=== PATIENT | female | born 1965 | race Caucasian/White ===

== ENCOUNTER 2016-05-26 23:04 | Emergency (ER) | payer OTHER ==
--- NOTE | 2016-05-27 00:25 | ED GENERAL ADULT ---
History of Present Illness General Chief Complaint: General Adult Stated Complaint: PT HAS SWOLLEN NECK AND TRAVELING UP THE FACE Source: patient Exam Limitations: no limitations Vital Signs & Intake/Output Vital Signs & Intake/Output ED Intake and Output 05/28 0000 05/27 1200 Intake Total 0 Output Total Balance 0 Intake, Oral 0 Allergies Uncoded Allergies: NKDA (NONE 05/26/16) Triage Note: PER PT HAS A BIRTHMARK TO RT NECK, TONIGHT NOTICED SWELLING TO NECK AND NOW TRAVELING INTO NECK AND RT CHEEK. NO INJURY. TOOK MOTRIN WITHIOUT EFFECT. Triage Nurses Notes Reviewed? yes HPI: Patient is a 50-year-old female presents for evaluation of swelling to the right side of her neck. 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 Patient noticed intermittent swelling over the past couple months over the birthmark. Patient was seen by a anime artist and placed on a steroid cream with no improvement. Today patient noticed a "golf ball" size area of swelling to the right inferior part of her neck and the area of the right lung apex. Area was more pronounced prior to evaluation. Patient reports pain was 0 out of 10. Denies pruritus, recent trauma, numbness, weakness, unexplained weight loss, difficulty swallowing, difficulty breathing. (JON MONGE) Past History Travel History Traveled to [place] past 21 day No Medical History Any Pertinent Medical History? none Neurological: NONE EENT: NONE Cardiovascular: NONE Respiratory: NONE Gastrointestinal: NONE Hepatic: NONE Renal: NONE Musculoskeletal: NONE Psychiatric: NONE Endocrine: NONE Surgical History Surgical History: cyst removal right upper chest Psychosocial History What is your primary language German Tobacco Use: Never used Family History Hx Contributory? No (JON MONGE) Review of Systems Review of Systems Constitutional: Denies: chills, fever, malaise, weakness. EENTM: Reports: no symptoms. Respiratory: Denies: cough, short of breath. Cardiovascular: Denies: chest pain. GI: Reports: no symptoms. Musculoskeletal: Denies: back pain, neck pain. Skin: Reports: see HPI. Neurological/Psychological: Reports: no symptoms. Hematologic/Endocrine: Reports: no symptoms. Immunologic/Allergic: Reports: no symptoms. (JON MONGE) Physical Exam Physical Exam General Appearance: well developed/nourished, alert, awake Head: atraumatic, normal appearance Eyes: Bilateral: normal appearance, PERRL, EOMI. Ears, Nose, Throat: normal pharynx, normal ENT inspection, hearing grossly normal Neck: mild right lateral neck swelling. Nontender, no erythema. Thyroid mobile , no palpable masses or nodules Respiratory: normal breath sounds, chest non-tender, no respiratory distress, lungs clear Cardiovascular: regular rate/rhythm Peripheral Pulses: 2+ radial (R) Back: normal inspection, normal range of motion Extremities: normal inspection, normal capillary refill, normal range of motion, no edema Neurologic/Psych: no motor/sensory deficits, awake, alert, oriented x 3, normal gait, normal mood/affect Skin: extensive "birthmark" right superior chest wall extending to right side of neck and right posterior auricular. Lymphatic: no anterior cervical will Core Measures ACS in differential dx? No CVA/TIA Diagnosis: No Severe Sepsis Present: No Septic Shock Present: No (JON MONGE) Progress Differential Diagnoses I considered the following diagnoses in my evaluation of the patient: soft tissue mass, vascular abnormality, allergic reaction, thyroid nodule Initial ED EKG: none Hand-Off Endorsed To: PAULINA RAMAN,LUANA Machado Pending: CT, labs (JON MONGE) Plan of Care: Orders Procedure Date/time Status COMPREHENSIVE METABOLIC PANEL 05/27 36 Active CBC WITHOUT DIFFERENTIAL 05/[address] NECK W IV CONTRAST 05/[address] CHEST W IV CONTRAST 05/27 36 Active Laboratory Tests 05/27/16 0111: Sodium Pending, Potassium Pending, Chloride Pending, Carbon Dioxide Pending, Anion Gap Pending, BUN Pending, Creatinine Pending, BUN/Creatinine Ratio Pending , Glucose Pending, Calcium Pending, Total Bilirubin Pending, AST Pending, ALT Pending, Alkaline Phosphatase Pending, Total Protein Pending, Albumin Pending, Globulin Pending, Albumin/Globulin Ratio Pending, CBC w Diff NO MAN DIFF REQ, RBC 5.16, MCV 87.2, MCH 30.1, RDW 12.9, MPV 9.3, Gran % 56.1, Lymphocytes % 35.0 , Monocytes % 7.2, Eosinophils % 1.4, Basophils % 0.3, Absolute Granulocytes 4.5 , Absolute Lymphocytes 2.8, Absolute Monocytes 0.6, Absolute Eosinophils 0.1, Absolute Basophils 0, PUBS MCHC 34.[address] Soria with labs and CT scan pending. (KANDIS CAAL,JON) Diagnostic Imaging: Viewed by Me: CT Scan. Discussed w/RAD: CT Scan. Radiology Impression: neck ct w/ iv contrast... no acute abnormality. , chest w/ iv contrast... no acute disease Comments: PATIENT: KYLE FERNANDEZ PRESENT AGE: 50 PATIENT ACCOUNT NO: [id number] : 65 LOCATION: [facility] ORDERING PHYSICIAN: JON CAAL SERVICE DATE: 05/27/16 EXAM TYPE: CAT - CT CHEST W IV CONTRAST EXAMINATION: CT CHEST WITH CONTRAST CLINICAL INFORMATION: Mass or lymphadenopathy. COMPARISON: None TECHNIQUE: Multidetector volumetric CT imaging of the chest was obtained after the administration of 50 mL of Optiray 320 intravenous contrast without immediate adverse reactions. Axial MIP volume rendering provided. Sagittal and coronal reformatted images were obtained. DLP: 297.06 mGy-cm FINDINGS: GAS OPERATIONS SUPERINTENDENT: Unremarkable LUNGS: The lungs are clear with no evidence of inflammation or nodules. MEDIASTINUM: The mediastinum is normal. PLEURA: There is no pleural effusion. No pleural mass or thickening. AXILLA: No lymphadenopathy. UPPER ABDOMEN: Unremarkable. OSSEOUS STRUCTURES: Unremarkable. IMPRESSION: Unremarkable examination. DICTATED BY: SANTA NESS MD DATE/TIME DICTATED:05/27/16252 SIX SIGMA BLACK TRAINER:MARIAJOSE DATE/TIME TRANSCRIBED:05/27/16252 CONFIDENTIAL, DO NOT COPY WITHOUT APPROPRIATE AUTHORIZATION. <Electronically signed in Other Vendor System> SIGNED BY: SANTA NESS MD 05/27/169 PATIENT: KYLE FERNANDEZ PRESENT AGE: 50 PATIENT ACCOUNT NO: [id number] : 65 LOCATION: ER ORDERING PHYSICIAN: JON CAAL SERVICE DATE: 05/27/16 EXAM TYPE: CAT - CT NECK W IV CONTRAST EXAMINATION: CT SOFT TISSUE NECK WITH CONTRAST CLINICAL INFORMATION: Swelling right side of neck COMPARISON: None. TECHNIQUE: Following the administration of 50 mL of Optiray 320 intravenous contrast, helical imaging was performed in the axial plane with generation of coronal and sagittal reformatted images. DLP: 168.23 mGy-cm. FINDINGS: No cervical adenopathy is identified. The parotid glands are homogeneous in attenuation. The submandibular glands are normal. No contour abnormality or pathologic enhancement is seen within the oral cavity or pharyngeal mucosal space. The laryngeal structures are normal. The parapharyngeal fat is preserved. The carotid sheath vasculature opacify normally. No extra mucosal soft tissue mass or fluid collection is seen. No retropharyngeal fluid collection is seen. The thyroid gland is normal. The superior mediastinum is unremarkable. The lung apices are clear. The mastoid air cells and visualized portions of the paranasal sinuses are well-aerated. The temporomandibular joints are normal. Dental amalgam causes artifact.. No osseous abnormalities are seen. The imaged portions of the brain parenchyma are unremarkable. IMPRESSION: Unremarkable examination. DICTATED BY: SANTA NESS MD DATE/TIME DICTATED:05/27/16247 SIX SIGMA BLACK TRAINER:MARIAJOSE DATE/TIME TRANSCRIBED:05/27/16247 CONFIDENTIAL, DO NOT COPY WITHOUT APPROPRIATE AUTHORIZATION. <Electronically signed in Other Vendor System> SIGNED BY: SANTA NESS MD 05/27/16 0257 (LUANA SORIA MD) Departure Departure Disposition: HOME OR SELF CARE Condition: Stable Clinical Impression Primary Impression: Neck swelling Referrals: MARILIA RAMAN,GREG Rodríguez (PCP/Family) Departure Forms: Customer Survey General Discharge Information (JON MONGE) PA/LEARNING PROGRAM MANAGER Co-Sign Statement Statement: ED Attending supervision documentation- [x] I saw and evaluated the patient. I have also reviewed all the pertinent lab results and diagnostic results. I agree with the findings and the plan of care as documented in the PA's/LEARNING PROGRAM MANAGER's documentation. pt with negative ct scan. otherwise benign exam... pt safe for discharge... discussed at length with patient. [] I have reviewed the ED Record and agree with the PA's/LEARNING PROGRAM MANAGER's documentation. [] Additions or exceptions (if any) to the PAs/LEARNING PROGRAM MANAGER's note and plan are summarized below: [] (LUANA SORIA MD) Critical Care Note Critical Care Note Critical Care Time: non-applicable (JON MONGE)
[2016-05-27 01:16] LABS: ABSOLUTE BASOPHIL COUNT 0 /CUMM (0.0-0.2); ABSOLUTE EOSINOPHIL COUNT 0.1 /CUMM (0.0-0.7); ABSOLUTE GRANULOCYTE CT 4.5 /CUMM (1.4-6.5); ABSOLUTE LYMPH COUNT 2.8 /CUMM (1.2-3.4); ABSOLUTE MONOCYTE COUNT 0.6 /CUMM (0.10-0.60); BASOPHIL % 0.3 % (0.0-2.0); EOSINOPHIL % 1.4 % (0-5); GRANULOCYTE % 56.1 % (42.2-75.2); MEAN CORPUSCULAR HGB 30.1 PG (27.0-31.0); MEAN CORPUSCULAR HGB CONC 34.5 G/DL (33.0-37.0); MEAN CORPUSCULAR VOLUME 87.2 FL (81.0-99.0); MEAN PLATELET VOLUME 9.3 FL (7.4-10.4); PLATELET COUNT 187 /CUMM (130-400); RBC DISTRIBUTION WIDTH 12.9 % (11.5-14.5); RED BLOOD CELL CT 5.16 /CUMM (4.20-5.40)
--- NOTE | 2016-05-27 02:57 | CT SCAN REPORT ---
EXAMINATION: CT SOFT TISSUE NECK WITH CONTRAST CLINICAL INFORMATION: Swelling right side of neck COMPARISON: None. TECHNIQUE: Following the administration of 50 mL of Optiray 320 intravenous contrast, helical imaging was performed in the axial plane with generation of coronal and sagittal reformatted images. DLP: 168.23 mGy-cm. FINDINGS: No cervical adenopathy is identified. The parotid glands are homogeneous in attenuation. The submandibular glands are normal. No contour abnormality or pathologic enhancement is seen within the oral cavity or pharyngeal mucosal space. The laryngeal structures are normal. The parapharyngeal fat is preserved. The carotid sheath vasculature opacify normally. No extra mucosal soft tissue mass or fluid collection is seen. No retropharyngeal fluid collection is seen. The thyroid gland is normal. The superior mediastinum is unremarkable. The lung apices are clear. The mastoid air cells and visualized portions of the paranasal sinuses are well-aerated. The temporomandibular joints are normal. Dental amalgam causes artifact.. No osseous abnormalities are seen. The imaged portions of the brain parenchyma are unremarkable. IMPRESSION: Unremarkable examination.
--- NOTE | 2016-05-27 02:59 | CT SCAN REPORT ---
EXAMINATION: CT CHEST WITH CONTRAST CLINICAL INFORMATION: Mass or lymphadenopathy. COMPARISON: None TECHNIQUE: Multidetector volumetric CT imaging of the chest was obtained after the administration of 50 mL of Optiray 320 intravenous contrast without immediate adverse reactions. Axial MIP volume rendering provided. Sagittal and coronal reformatted images were obtained. DLP: 297.06 mGy-cm FINDINGS: INSPECTOR INSULATION: Unremarkable LUNGS: The lungs are clear with no evidence of inflammation or nodules. MEDIASTINUM: The mediastinum is normal. PLEURA: There is no pleural effusion. No pleural mass or thickening. AXILLA: No lymphadenopathy. UPPER ABDOMEN: Unremarkable. OSSEOUS STRUCTURES: Unremarkable. IMPRESSION: Unremarkable examination.
[2016-05-27 04:28] VITALS: BP 148/83
== END 2016-05-27 04:41 ==
LOC: ERH 23:04
PROVIDERS: Physician Assistant
DX: R22.0 Localized swelling, mass and lump, head (principal)